=== PATIENT | female | born 1955 | race Caucasian/White ===

== ENCOUNTER 2023-07-28 22:14 | Inpatient (IN) | payer MEDICARE, MEDICAID ==
[~2023-07-28] VITALS: Ht 147.3 cm; Wt 56.5 kg
[~2023-07-28 22:14] MED LIST: ASPIRIN CHEWABL81 MG PO; CEPACOL SORE T1 EACH MM; DAILY VITE1 EACH PO; DEPAKOTE250 MG PO; FOSFOMYCIN TROME3 GM PO; IRON325 M1 PO; ISO D3 2,000 U1 EACH PO; KLONOPIN0.5 MG PO; LIPITOR10 MG PO; MULTIPLE VITAM1 EAC1 PO; NAMENDA-5 PO; NAMENDA10 MG PO; OXYCODONE HCL5 M1 PO; OXYCODONE HCL5 MG PO; PEPCID20 MG PO; PIOGLITAZONE HC15 MG PO; PRISTIQ50 MG PO; PROAIR RESPICL90 MCG INH; PROTONIX20 MG PO; RIVASTIGMINE T4.5 M1 PO; VIMPAT100 MG PO
[2023-07-29] VITALS: BP 135/69
[2023-07-29 04:47] LABS: ACT PARTIAL THROMBO TIME 27.6 SECONDS (20.0-32.1)
[2023-07-29 05:07] LABS: POTASSIUM 4.7 mmol/L (3.4-5.1); TOTAL PROTEIN 6.3 gm/dL (6.0-8.0)
[2023-07-29 06:08] LABS: BASO % 0.5 % (0.0-1.0); EOS # 0.2 10*3/uL (0.0-0.4); EOS % 2.5 % (1.0-4.0); HEMATOCRIT 32.4 % (37.0-47.0); LYMPH # 1.8 10*3/uL (1.3-4.4); LYMPH % 28.7 % (27.0-41.0); MEAN CELL VOLUME 95.3 fl (81.0-99.0); MEAN CORPUSCULAR HGB 31.5 pg (27.0-31.0); MEAN PLATELET VOLUME 9.5 fl (9.6-12.3); MONO # 0.5 10*3/uL (0.1-1.0); MONO % 7.6 % (3.0-9.0); NEUT # 3.8 10*3/uL (2.3-7.9); NEUT % 60.5 % (47.0-73.0); PLATELET COUNT AUTOMATED 140 10*3/uL (130-400); RED CELL DISTRI WIDTH 14.1 % (0-14.5); WHITE BLOOD COUNT 6.3 10*3/uL (4.8-10.8)
[2023-07-29 08:00] VITALS: BP 115/53
[2023-07-29 12:00] VITALS: BP 104/60
[2023-07-29 16:00] VITALS: BP 128/52
[2023-07-29 20:00] VITALS: BP 171/44
[2023-07-30] VITALS: BP 133/64
[2023-07-30 04:23] LABS: BASO % 0.3 % (0.0-1.0); EOS # 0.2 10*3/uL (0.0-0.4); EOS % 2.5 % (1.0-4.0); HEMATOCRIT 31.7 % (37.0-47.0); LYMPH # 2.4 10*3/uL (1.3-4.4); LYMPH % 32.6 % (27.0-41.0); MEAN CELL VOLUME 95.8 fl (81.0-99.0); MEAN CORPUSCULAR HGB 30.8 pg (27.0-31.0); MEAN CORPUSCULAR HGB CONC 32.2 g/dl (33.0-37.0); MEAN PLATELET VOLUME 9.3 fl (9.6-12.3); MONO # 0.6 10*3/uL (0.1-1.0); MONO % 7.5 % (3.0-9.0); NEUT # 4.2 10*3/uL (2.3-7.9); PLATELET COUNT AUTOMATED 133 10*3/uL (130-400); RED BLOOD COUNT 3.31 10*6/uL (4.10-5.10); RED CELL DISTRI WIDTH 14.1 % (0-14.5); WHITE BLOOD COUNT 7.3 10*3/uL (4.8-10.8)
[2023-07-30 08:00] VITALS: BP 124/76
[2023-07-30 12:00] VITALS: BP 123/62
[2023-07-30 16:00] VITALS: BP 126/63
[2023-07-30 20:00] VITALS: BP 133/68
[2023-07-31] VITALS: BP 135/66
[2023-07-31 05:04] LABS: POTASSIUM 4.8 mmol/L (3.4-5.1)
[2023-07-31 06:15] LABS: BASO % 0.4 % (0.0-1.0); EOS # 0.3 10*3/uL (0.0-0.4); EOS % 3.5 % (1.0-4.0); LYMPH # 1.9 10*3/uL (1.3-4.4); LYMPH % 25.3 % (27.0-41.0); MEAN CELL VOLUME 96.5 fl (81.0-99.0); MEAN CORPUSCULAR HGB 31.3 pg (27.0-31.0); MEAN CORPUSCULAR HGB CONC 32.4 g/dl (33.0-37.0); MEAN PLATELET VOLUME 9.9 fl (9.6-12.3); MONO # 0.6 10*3/uL (0.1-1.0); MONO % 7.8 % (3.0-9.0); NEUT # 4.6 10*3/uL (2.3-7.9); NEUT % 62.7 % (47.0-73.0); PLATELET COUNT AUTOMATED 132 10*3/uL (130-400); RED BLOOD COUNT 3.42 10*6/uL (4.10-5.10); RED CELL DISTRI WIDTH 13.9 % (0-14.5); WHITE BLOOD COUNT 7.4 10*3/uL (4.8-10.8)
[2023-07-31 08:00] VITALS: BP 151/62
[2023-07-31 12:00] VITALS: BP 136/78
[2023-07-31 16:00] VITALS: BP 123/93
[2023-07-31 20:00] VITALS: BP 181/64
[2023-08-01] VITALS: BP 133/56
[2023-08-01 08:00] VITALS: BP 118/69
[2023-08-01 12:00] VITALS: BP 143/57
[2023-08-01 16:00] VITALS: BP 136/50
[2023-08-01 20:00] VITALS: BP 135/59
[2023-08-02] VITALS: BP 158/61
[2023-08-02 08:00] VITALS: BP 141/59
[2023-08-02 12:00] VITALS: BP 118/52
[2023-08-02] MEDS ORDERED: VANCOMYCIN HCL125 MG PO (12:23)
[2023-08-02] MEDS ORDERED: FLORASTOR250 MG PO (12:38)
[2023-08-04] MEDS ORDERED: VANCOMYCIN HCL125 MG PO ×2 (09:35→09:38)
[2023-08-04] MEDS ORDERED: RIVASTIGMINE T1.5 M1 PO (09:47)
[2023-08-04] MEDS ORDERED: CLONAZEPAM0.5 M2 PO (09:47)
[2023-08-04] MEDS ORDERED: NAMENDA-5 PO (09:47)
[2023-08-04] MEDS ORDERED: DIVALPROEX SOD250 MG PO (09:47)
[2023-08-04] MEDS ORDERED: MIRTAZAPINE15 M2 PO (09:47)
== END 2023-08-02 17:31 | DRG 372 ==
LOC: 5E 22:14
PROVIDERS: Student in an Organized Health Care Education/Training Program; ADMIT Student in an Organized Health Care Education/Training Program; ATTEND Student in an Organized Health Care Education/Training Program
DX: A04.72 Enterocolitis due to Clostridium difficile, not specified as recurrent (principal); N17.9 Acute kidney failure, unspecified; N39.0 Urinary tract infection, site not specified; M06.9 Rheumatoid arthritis, unspecified; D64.9 Anemia, unspecified; J44.9 Chronic obstructive pulmonary disease, unspecified; E87.5 Hyperkalemia; D69.6 Thrombocytopenia, unspecified; E83.39 Other disorders of phosphorus metabolism; J45.20 Mild intermittent asthma, uncomplicated; N18.9 Chronic kidney disease, unspecified; R31.9 Hematuria, unspecified; S31.819A Unspecified open wound of right buttock, initial encounter; S31.000A Unspecified open wound of lower back and pelvis without penetration into retroperitoneum, initial encounter; E11.22 Type 2 diabetes mellitus with diabetic chronic kidney disease; X58.XXXA Exposure to other specified factors, initial encounter; Z90.710 Acquired absence of both cervix and uterus; Z88.1 Allergy status to other antibiotic agents; Z88.8 Allergy status to other drugs, medicaments and biological substances; Y93.89 Activity, other specified; Y92.89 Other specified places as the place of occurrence of the external cause; Y99.8 Other external cause status